=== PATIENT | male | born 1975 | race Two or more races ===

== ENCOUNTER 2016-12-03 08:07 | Day surgery (SDC) | payer OTHER, BC ==
[~2016-12-03] VITALS: Ht 172.7 cm; Wt 80.7 kg
[2016-12-03] VITALS (8 sets, daily range): BP systolic 118–133; BP diastolic 75–93
[~2016-12-03 08:07] MED LIST: NKM
--- NOTE | 2016-12-03 09:57 | Pre-Procedure Note/Attestation ---
Pre-Procedure Note/Attestation Complete Prior to Procedure Planned Procedure: left Procedure Narrative: Left knee arthroscopy with partial menisectomy Indications for Procedure Pre-Operative Diagnosis: Left knee meniscus tear Attestation I attest that I discussed the nature of the procedure; its benefits; risks and complications; and alternatives (and the risks and benefits of such alternatives ), prior to the procedure, with the patient (or the patient's legal home furnishings sales representative). I attest that, if there was a reasonable possibility of needing a blood transfusion, the patient (or the patient's legal home furnishings sales representative) was given the [facility] standardized written summary, pursuant to the Mark Raúl Blood Safety Act ([place] Health and Safety Code # 1645, as amended). I attest that I re-evaluated the patient just prior to the surgery and that there has been no change in the patient's H&P, except as documented below: MIRA WEBBER Dec 03, 2016 09:57
[2016-12-03] MEDS ORDERED: fentaNYL 100 mcg/2 mL IV ONE (12:45)
[2016-12-03] MEDS ORDERED: LR 1000ml ONE (12:45)
[2016-12-03] MEDS ORDERED: Propofol 10mg/ml 20ml IV ONE (12:45)
[2016-12-03] MEDS ORDERED: Sterile Water Irrig 1000ml IRRIG ONE (12:45)
[2016-12-03] MEDS ORDERED: Midazolam 2mg/2ml Inj ONE (12:45)
[2016-12-03] MEDS ORDERED: Ketorolac 30mg Inj ONE (12:45)
[2016-12-03] MEDS ORDERED: NS Irrig 4000ml IRRIG ONE (12:56)
[2016-12-03] MEDS ORDERED: Bupivacaine w/Epi 0.25% 30ml Vial INJ ONE (12:56)
[2016-12-03] MEDS ORDERED: DiphenhydrAMINE 50mg/ml Inj IVP PRN ×2 (13:00→13:15)
[2016-12-03] MEDS ORDERED: D5 1/2NS 1,000 ML IV SCH (13:00)
[2016-12-03] MEDS ORDERED: Norco 5mg/325mg tab ORAL PRN (13:00)
[2016-12-03] MEDS ORDERED: Tylenol #3 tab (300mg/30mg) ORAL PRN (13:00)
[2016-12-03] MEDS ORDERED: HYDROmorphone 1mg/ml Carpuject SUBQ PRN (13:00)
[2016-12-03] MEDS ORDERED: LR 1000ml 1,000 ML IVLG SCH (13:13)
--- NOTE | 2016-12-03 13:13 | Anethesia Preoperative Eval ---
Anesthesia Pre-op PMH/ROS General Date of Evaluation: Dec 03, 2016 Time of Evaluation: 12:40 Anesthesiologist: Ilya ASA Score: ASA 2 Mallampati Score Class I : Soft palate, uvula, fauces, pillars visible Class II: Soft palate, uvula, fauces visible Class III: Soft palate, base of uvula visible Class IV: Only hard plate visible Mallampati Classification: Class II Surgeon: Reji Diagnosis: L knee pain Surgical Procedure: L knee arthroscopy Anesthesia History: none Family History: no anesthesia problems Allergies: Coded Allergies: No Known Allergies (Unverified , 09/11/16) Medications: see eMAR Past Medical History Cardiovascular: Denies: CAD, HTN, CA, arrhythmia, other, valve dz Pulmonary: Denies: COPD, JOSÉ MIGUEL, asthma, other Gastrointestinal/Genitourinary: Reports: GERD - mild, Denies: CRI, ESRD, other Neurologic/Psychiatric: Denies: CVA, TIA, dementia, depression/anxiety, other Endocrine: Denies: DM, hypothyroidism, other, steroids HEENT: Denies: [place] (L), [place] (R), cataract (L), cataract (R), glaucoma, other Hematology/Immune: Denies: DVT, anemia, bleeding disorder, other Musculoskeletal/Integumentary: Denies: DDD, DJD, OA, RA, edema, other PMH Narrative: as above PSxH Narrative: None. Anesthesia Pre-op Phys. Exam Physician Exam Last Vital Signs Date Time Temp Pulse Resp B/P Pulse Ox O2 Delivery O2 Flow Rate FiO2 12/03/16 08:32 97.9 61 17 133/93 97 Room Air Constitutional: NAD Neurologic: CN 2-12 intact Cardiovascular: RRR, no M/R/G Respiratory: CTA Gastrointestinal: S/NT/ND Airway Exam Mallampati Score: Class II MO: full Neck: flexible ROM: full Teeth: intact Dentures: no lower, no upper Anesthesia Pre-op A/P Labs see chart Risk Assessment & Plan Assessment: ASA 2 Plan: GA with LMA Status Change Before Surgery: No Pre-Antibiotics Drug: Ancef 1gr. Given Within 1 Hr of Incision: Yes Time Given: 12:57 MINNA GORE M.D. Dec 03, 2016 13:13
[2016-12-03] MEDS ORDERED: Metoclopramide 10mg/2ml Inj IVP PRN (13:15)
[2016-12-03] MEDS ORDERED: Meperidine 25mg/0.5ml Inj (FOR RIGORS ONLY) IV PRN (13:15)
[2016-12-03] MEDS ORDERED: Ketorolac 30mg Inj IV PRN (13:15)
[2016-12-03] MEDS ORDERED: Hydromorphone 0.5mg/0.5ml inj IVP PRN (13:15)
--- NOTE | 2016-12-03 13:21 | Brief Operative Note ---
Immediate Post Operative Note Operative Note Pre-op Diagnosis: Left knee meniscus tear Procedure: Left knee arthroscopy with partial medial menisectomy and plica resection Post-op Diagnosis: same as pre-op Findings: consistent w/pre-op dx studies Surgeon: Reji Anesthesiologist: Dr. Woodruff Anesthesia: general, regional Specimen: none Complications: none Condition: stable Estimated Blood Loss: none Drains: none Implant(s) used?: No MIRA WEBBER Dec 03, 2016 13:21
--- NOTE | 2016-12-03 13:32 | Immediate Post-Op Evaluation ---
Immediate Post-Op Evalulation Immediate Post-Op Evalulation Procedure: L knee arthroscopy, meniscectomy Date of Evaluation: Dec 03, 2016 Time of Evaluation: 13:30 IV Fluids: 800 Blood Products: none Estimated Blood Loss: min Urinary Output: none Blood Pressure Systolic: 127 Blood Pressure Diastolic: 82 Pulse Rate: 77 Respiratory Rate: 20 O2 Sat by Pulse Oximetry: 99 Temperature (Fahrenheit): 97.6 Pain Score (1-10): 2 Nausea: No Vomiting: No Complications none Patient Status: reacts, patent, none Hydration Status: adequate MINNA GORE M.D. Dec 03, 2016 13:32
--- NOTE | 2016-12-03 17:01 | Operative Note - Dictated ---
DATE OF OPERATION: 12/03/2016 SURGEON: Howard Mendoza M.D. UNION REPRESENTATIVE: None. ANESTHESIA: General plus local. COMPLICATIONS: None. ANTIBIOTICS: Ancef. PREOPERATIVE DIAGNOSES: Left knee: 1. Medial meniscus tear, posterior horn. 2. Medial plica. POSTOPERATIVE DIAGNOSES: Left knee: 1. Medial meniscus tear, posterior horn. 2. Medial plica. PROCEDURES PERFORMED: Left knee arthroscopy with: 1. Partial medial meniscectomy. 2. Plica resection medially. BACKGROUND: The patient has had longstanding left knee pain refractory to nonoperative management. All risks, benefits, and alternatives to surgical intervention were discussed in great detail. Risks included, but were not limited to, bleeding, infection, neurovascular injury, need for additional surgical intervention, failure of pain relief, arthrofibrosis, complications of anesthesia, blood clots, stroke, heart attack, and potentially . He understood these risks, amongst others, and consent was signed. PROCEDURE IN DETAIL: The patient was brought into the operating room and placed supine on the operating room table. The left knee was correctly verified for surgical site and prepped and draped in a sterile fashion. Examination under anesthesia revealed no laxity and no effusion. Range of motion was symmetric to the right. ANTEROLATERAL AND ANTEROMEDIAL PORTALS WERE MARKED AND INJECTED WITH 20 ML OF 0.25% MARCAINE WITH EPINEPHRINE. A DIAGNOSTIC ARTHROSCOPY WAS THEN UNDERTAKEN. IT REVEALED THE FOLLOWIN. Normal suprapatellar pouch. 2. Normal patellofemoral articulation. 3. Normal lateral gutter. 4. Plica medial gutter. 5. Normal lateral meniscus. 6. Normal lateral compartment. 7. Normal anterior cruciate ligament. 8. Normal PCL. 9. Posterior horn medial meniscus tear with flap. 10. Normal medial compartment. In the medial compartment, the flap tear in the posterior horn was brought into the joint so it could be transected. Using an up biter and a shaver for contouring, the tear was resected and contoured. It was then tested with a probe and found to be stable. Attention was turned to the plica, which was resected using a 3.5 mm shaver. All fluid and debris were evacuated from the knee. A 10 mL of 0.25% Marcaine with epinephrine were injected. The wounds were copiously irrigated and reapproximated using 4-0 Monocryl in a subcuticular fashion. Steri-Strips were used over Mastisol. A dry sterile dressing was applied. A compressive stocking was fitted. There were no complications. I attest that I performed the entire operation. He was then transferred to recovery in good condition. Howard Mendoza M.D. DR: PARESH JOB#: [id number] CC: DEVAN
== END 2016-12-03 14:45 | disposition home or self-care (01) ==
LOC: SDS 08:07
DX: M23.222 Derangement of posterior horn of medial meniscus due to old tear or injury, left knee (principal); M67.52 Plica syndrome, left knee; K21.9 Gastro-esophageal reflux disease without esophagitis
CPT/HCPCS: 29881; 97161; J0690; J1885; J2250; J2405; J2704; J3010; J7120; 94003; 94150